=== PATIENT | female | born 2000 | race Two or more races ===

== ENCOUNTER 2024-07-01 14:06 | Emergency (ER) | payer MEDICAID, SELFPAY ==
[2024-07-01 14:06] VITALS: BMI 22.6
[2024-07-01 14:17] VITALS: BP 118/75; PULSE 76; RESP 16; TEMP 36.8; O2SAT 99
--- NOTE | 2024-07-01 14:26 | XR_ITS ---
Examination: CT abdomen and pelvis without contrast. Coronal 3-D reconstructions. Sagittal 2-D reconstructions. Date and time of exam:July 01, 2024 1615 hours Comparison July 30, 2018 INDICATIONS: Lower abdominal pain with bloody stools beginning 3 days ago CTDI: vol (mGy): 6.23 DLP: (mGycm): 336 Technique: Axial images of the abdomen have been obtained, 3 mm slice thickness Intravenous contrast material has not been administered. Low dose protocols were performed. One or more of the following dose reduction techniques were used; automated exposure control, adjustment of the mA and/or KV according to patient size, use of iterative reconstruction technique. Findings: No focal liver or splenic lesion No gallstones No pancreatic mass No renal or ureteral calculi Moderate right renal parenchymal scar formation Aorta normal size No pericecal inflammatory change No bowel obstruction No diverticulitis This is a noncontrast study which limits assessment for gastrointestinal bleeding No pelvic mass Bilateral intact IMPRESSION: Moderate right renal parenchymal scar formation No renal or ureteral calculi, hydronephrosis No CT findings of appendicitis No noncontrast findings of a colitis or enteritis Consider nuclear medicine gastrointestinal bleeding study follow-up as clinically warranted
--- NOTE | 2024-07-01 14:27 | PD.EDRME ---
Rapid Medical Screening Exam RME Arrival date/time: 07/01/24 14:06 23-year-old female presents the emergency department today for complaint of abdominal pain Chief Complaint: GI Bleed Vital signs: Vital Signs Temperature 98.3 F 07/01/24 14:17 Pulse Rate 76 07/01/24 14:17 Respiratory Rate 16 07/01/24 14:17 Blood Pressure 118/75 07/01/24 14:17 Pulse Oximetry (%) 99 07/01/24 14:17 Oxygen Delivery Method Room Air 07/01/24 14:17
[2024-07-01 15:14] LABS: Collection Type, Urine Clean Catch
[2024-07-01 15:24] LABS: HCG Qualitative,Urine Negative
[2024-07-01 15:34] LABS: Bacteria,Urine 3+; Bilirubin,Urine Negative (Negative); Blood,Urine Trace (Negative); Color,Urine Yellow (Lt Yel-Yel); Culture Indicated,Urine Yes; Glucose, Urine Negative (Negative); Ketones,Urine Negative (Negative); Leukocyte Esterase,Urine Positive (Negative); Nitrite,Urine Negative (Negative); Protein,Urine Negative (Neg - Trace); RBC,Urine 4 /hpf (0-3); Specific Gravity,Urine 1.026 (1.001-1.035); Squamous Epithelial Cell,Urine 8 /hpf (0-5); Urobilinogen,Urine Negative mg/dL (0.0-1.0); WBC,Urine 11 /hpf (0-5)
[2024-07-01 15:35] LABS: Clarity,Urine Hazy (Clear/Hazy)
[2024-07-01 15:35] LABS: Basophils % (Auto) 1 % (0-2.5); Eosinophils # (Auto) 0.1 Thou/mm3 (0.0-0.5); Eosinophils % (Auto) 3 % (0-10); Hematocrit 36.2 % (36.0-46.0); Hemoglobin 12.7 g/dL (12.0-16.0); Immature Granulocytes % (Auto) 0 % (0-0); Immature Granulocytes Auto 0.01 Thou/mm3 (0.00-0.00); Lymphocytes # (Auto) 1.5 Thou/mm3 (1.0-4.8); Lymphocytes % (Auto) 26 % (10-50); Mean Corpuscular HGB Conc 35.1 g/dl (31.0-37.0); Mean Corpuscular Hemoglobin 27.2 pg (25.0-35.0); Mean Corpuscular Volume 78 fL (80-100); Monocytes # (Auto) 0.4 Thou/mm3 (0.0-0.8); Monocytes % (Auto) 6 % (0-12); Neutrophils # (Auto) 3.7 Thou/mm3 (1.8-7.7); Neutrophils % (Auto) 65 % (37-80); Nucleated Red Blood Cell % 0 /100 WBC (0); Platelet Count 176 Thou/mm3 (140-440); RDW Standard Deviation 37.9 fL (36.4-46.3); Red Blood Count 4.67 Miln/mm3 (4.00-5.20); White Blood Count 5.7 Thou/mm3 (3.6-11.0)
[2024-07-01 16:02] LABS: Alanine Aminotransferase 10 U/L (10-49); Albumin, Serum 4.6 gm/dL (3.5-5.0); Albumin/Globulin Ratio 1.9 (1.2-2.2); Alkaline Phosphatase 62 U/L (46-116); Anion Gap 8 (7-16); Aspartate Amino Transferase 16 U/L (0-34); BUN/Creatinine Ratio 10 Ratio (12-20); Blood Urea Nitrogen 9 mg/dL (9-23); Calcium 9.1 mg/dL (8.3-10.6); Calcium (Corrected) 9.1 mg/dL (8.5-10.1); Carbon Dioxide 26.2 mMol/L (20.0-31.0); Chloride 109 mMol/L (98-107); Creatinine (Component) 0.9 mg/dL (0.6-1.3); Estimated Creatinine Clearance 81.1 mL/min (>60); Globulin 2.4 gm/dL (2.3-3.5); Glucose 109 mg/dL (74-106); Lipase 34 U/L (12-53); Osmolality,Calculated 284 (275-295); Potassium 3.5 mMol/L (3.4-5.1); Sodium 143 mMol/L (136-145); eGFR > 60 See Note
--- NOTE | 2024-07-01 20:00 | PD.EDGIBLD ---
ED GI Bleed RME/HPI General Chief complaint: GI Bleed Stated complaint: SHARP DIFFUSE ABD PAIN WITH BLOODY STOOLS X3 DAYS Time Seen by Provider: 07/01/24 19:41 Arrival date/time: 07/01/24 14:06 RME / HPI RME / HPI Narrative: 23-year-old female patient with no significant medical history, came in for evaluation regarding lower abdominal pain. Onset of symptoms for the last 3 days as lower abdominal pain, described as dull ache, severity moderate associated with blood-streaked stool. Patient denies any vomiting denies any dizziness denies any other complaints. Patient was seen [facility] and was advised that she was having hemorrhoids. Patient denies any other complaints no medication was given prior to ER visit Related Data Home Medications ?Medication ?Instructions ?Recorded ?Confirmed vits no.130-ferrous fum 27 tab PO DAILY 07/28/20 10/12/23 27 mg iron-folic acid 800 mcg tablet ( Vitamin) Previous Rx's ?Medication ?Instructions ?Recorded ibuprofen 600 mg tablet 600 mg PO Q6H PRN pain #20 tabs 10/14/23 calcium polycarbophil 625 mg 1,250 mg (2 x 625 mg) PO QDAY #20 07/01/24 tablet (FiberCon) tabs cephalexin 500 mg capsule 500 mg PO Q8H 7 days #21 caps 07/01/24 dicyclomine 20 mg tablet 20 mg PO TID PRN abdominal pain 07/01/24 #30 tabs hydrocortisone acetate 25 mg 25 mg DC BID #24 ea 07/01/24 rectal suppository (Anucort-HC) pantoprazole 40 mg tablet,delayed 40 mg PO QDAY #14 tabs 07/01/24 release (Protonix) Allergies Allergy/AdvReac Type Severity Reaction Status Date / Time No Known Allergies Allergy Verified 07/01/24 14:08 Review of Systems Review of Systems Narrative Review of Systems: Review of system reviewed and within normal limits except mentioned in HPI ED Exam Narrative Physical exam: VITAL SIGNS: Reviewed. GENERAL APPEARANCE: Alert and interactive, follows commands, no acute distress, HEAD AND FACE: Non-traumatic. ENT: PERRL, pink conjunctivitis, eyelid no trauma, Mucous membrane moist. NECK: Supple, nontender, no nuchal rigidity. CHEST: No tenderness, no crepitus, no paradoxical movement, no retractions. LUNGS: Clear, well ventilated, symmetric, no rales, no wheezing, no ronchi, no stridor, good breath sounds bilaterally. HEART: Regular rate, regular rhythm, no murmur, no gallops. ABDOMEN: Soft, positive bowel sounds, nondistended, no guarding, nontender, no rebound, no masses, RECTAL: Patient refused rectal exam she told me that she just needed medication for hemorrhoids GENITAL: Deferred. NEUROLOGICAL: Gross motor function intact sensory function intact, Appropriate for age. MUSCULOSKELETAL: low back nontender, full range of motion. EXTREMITIES: Nontender, full range of motion. SKIN: Color pink, dry, no rash, no lacerations, no abrasions, no contusions. LYMPHATICS: Deferred. Course Quality Measures none Orders Category Date Time Status Occult Blood,Stool (Nursing) NOW Care 07/01/24 14:[address] abdomen pelvis wo con Stat Exams 07/01/24 14:26 Completed CBC Stat Lab 07/01/24 15:12 Completed Comprehensive Metabolic Panel Stat Lab 07/01/24 15:12 Completed HCG Qualitative,Urine Stat Lab 07/01/24 15:03 Completed Lipase Stat Lab 07/01/24 15:12 Completed UA, C/S IF [Urinalysis, C/S if Indicated] Stat Lab 07/01/24 15:03 Completed Urine Culture Stat Lab 07/01/24 15:03 Received Ketorolac Inj [Toradol Inj] Med 07/01/24 19:52 Discontinued 30 mg IM X1 ONE cephALEXin [Keflex] Med 07/01/24 19:55 Discontinued 500 mg PO X1 ONE Vital Signs Vital signs: Vital Signs Temperature 98.3 F 07/01/24 14:17 Pulse Rate 76 07/01/24 14:17 Respiratory Rate 16 07/01/24 14:17 Blood Pressure 118/75 07/01/24 14:17 Pulse Oximetry (%) 99 07/01/24 14:17 Oxygen Delivery Method Room Air 07/01/24 14:17 GI Bleed MDM Narrative MDM Narrative:: 23-year-old female patient with no significant medical history, came in for evaluation regarding lower abdominal pain. Onset of symptoms for the last 3 days as lower abdominal pain, described as dull ache, severity moderate associated with blood-streaked stool. Patient denies any vomiting denies any dizziness denies any other complaints. Patient was seen [facility] and was advised that she was having hemorrhoids. Patient denies any other complaints no medication was given prior to ER visit Patient's workup came back with positive for UTI no anemia noted. CT scan of the abdomen pelvis showed Moderate right renal parenchymal scar formation No renal or ureteral calculi, hydronephrosis No CT findings of appendicitis No noncontrast findings of a colitis or enteritis Consider nuclear medicine gastrointestinal bleeding study follow-up as clinically warranted Patient was given Toradol IM and Keflex Patient data External records reviewed:: None Clinical information provided by:: patient Social determinants that could affect healthcare access:: none Patient has the following chronic illnesses:: None How is presenting disease/condition affected by chronic disease/condition?: no chronic disease Evaluation data The following diagnostics were reviewed and interpreted by me:: lab results and radiology exam(s) Lab and/or radiology exams considered but not ordered:: None Interpretation Summary: See results MDM Medications / Prescriptions Medications or Prescriptions considered but not ordered:: None Medication administrations:: Medication Administration History Discontinued Medications Cephalexin HCl (Cephalexin 250 Mg Capsule) 500 mg PO X1 ONE Stop: 07/01/24 19:56 Ketorolac Tromethamine (Ketorolac Inj 60 Mg/2 Ml Vial) 30 mg IM X1 ONE Stop: 07/01/24 19:53 Toradol IM and Keflex Consultations Consultation(s) initiated? (list below): No Diagnosis GI bleed differential diagnosis: hemorrhoids, Lower gastrointestinal hemorrhage and hematochezia Most likely diagnosis given after review of the tests above:: UTI, bright red blood per rectum, abdominal pain, Admission Indicated Admission indicated?: not indicated Admission Request Was there a request for admission?: No Disposition Plan Disposition Plan: Discharge Discharge Attestation Discharge Attestation: The patient was given an opportunity to ask questions and understood the discharge instructions. Discharge instructions specifically effects, indications for sooner follow up or return to the emergency department, and the expected course of current diagnosis. Patient condition: Stable Discharge Plan Plan Patient Disposition: HOME (Self Care) Disposition Comment: stable Prescriptions/Referrals Prescriptions/Med Rec: New hydrocortisone acetate [Anucort-HC] 25 mg suppository 25 mg DC BID Qty: 24 0RF dicyclomine 20 mg tablet 20 mg PO TID PRN (Reason: abdominal pain) Qty: 30 0RF calcium polycarbophil [FiberCon] 625 mg tablet 1,250 mg PO QDAY Qty: 20 0RF pantoprazole [Protonix] 40 mg tablet,delayed release (DR/EC) 40 mg PO QDAY Qty: 14 0RF cephalexin 500 mg capsule 500 mg PO Q8H 7 Days Qty: 21 0RF No Action Vitamin 27 mg iron- 800 mcg tablet 27 tab PO DAILY Patient Comments: TAKE ONE TABLET BY MOUTH EVERY DAY VITAMIN ibuprofen 600 mg tablet 600 mg PO Q6H PRN (Reason: pain) Qty: 20 0RF Referrals: No Primary/Family,Physician [Primary Care Provider] - In 1 week Problem List Clinical Impression: Abdominal pain, UTI (urinary tract infection), Hemorrhoids, Bright red blood per rectum Patient/Caregiver Discharge Instructions Discharge Activity: activity as tolerated Education Materials: Abdominal Pain, Understanding Urinary Tract ... Additional Instructions: Thank you for the opportunity for serving you today. You are stable for discharged . You are advised to: Follow-up with your PCP in 1 to 2 days Return to ED for worsening of symptoms Increase oral fluids Take medication as prescribed Ask her PCP to refer you to a GI specialist for outpatient colonoscopy Print Language: Lebanese Stand Alone Forms: Dorita Award Info., Patient Portal Info Letter PA/FLIGHT ENGINEER PERFORMANCE QUALIFIED Supervising Physician PA/FLIGHT ENGINEER PERFORMANCE QUALIFIED Supervising Physician: MD Keaton
[2024-07-01] MEDS: cephALEXin 250 MG CAPSULE 500 MG PO (20:15)
[2024-07-01] MEDS: KETOROLAC INJ 60 MG/2 ML VIAL 30 MG IM (20:21)
== END 2024-07-01 20:38 | disposition home or self-care (01) ==
PROVIDERS: Nurse Practitioner Primary Care; Emergency Provider Emergency Medicine
DX: N39.0 Urinary tract infection, site not specified (principal); K64.9 Unspecified hemorrhoids; K62.5 Hemorrhage of anus and rectum
CPT/HCPCS: 36415; 74176; 80053; 81001; 81025; 83690; 85025; 87086; 96372; 99284; J1885; A9270

== ENCOUNTER 2025-02-13 18:21 | Emergency (ER) | payer MEDICAID, SELFPAY ==
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
[2025-02-13 18:59] VITALS: BP 143/94; PULSE 102; RESP 20; TEMP 36.9; O2SAT 99
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
[2025-02-13] MEDS: ACETAMINOPHEN w/COD 300-30 TABLET 2 TAB PO (19:26)
[2025-02-13] MEDS: IBUPROFEN TAB 600 MG TABLET PO (19:27)
[2025-02-13 19:37] LABS: Basophils # (Auto) 0.0 Thou/mm3 (0.0-0.2); Basophils % (Auto) 0 % (0-2.5); Eosinophils # (Auto) 0.1 Thou/mm3 (0.0-0.5); Eosinophils % (Auto) 1 % (0-10); Hematocrit 37.0 % (36.0-46.0); Hemoglobin 12.9 g/dL (12.0-16.0); Immature Granulocytes Auto 0.02 Thou/mm3 (0.00-0.00); Lymphocytes # (Auto) 1.0 Thou/mm3 (1.0-4.8); Lymphocytes % (Auto) 13 % (10-50); Mean Corpuscular HGB Conc 34.9 g/dl (31.0-37.0); Mean Corpuscular Hemoglobin 28.6 pg (25.0-35.0); Mean Corpuscular Volume 82 fL (80-100); Monocytes # (Auto) 0.4 Thou/mm3 (0.0-0.8); Monocytes % (Auto) 6 % (0-12); Neutrophils # (Auto) 6.1 Thou/mm3 (1.8-7.7); Neutrophils % (Auto) 79 % (37-80); Nucleated Red Blood Cell # 0.00 Thou/mm3 (0.00-0.00); Nucleated Red Blood Cell % 0 /100 WBC (0); Platelet Count 174 Thou/mm3 (140-440); RDW Standard Deviation 37.5 fL (36.4-46.3); Red Blood Count 4.51 Miln/mm3 (4.00-5.20); White Blood Count 7.6 Thou/mm3 (3.6-11.0)
[2025-02-13 19:50] LABS: INR 1.0 (0.9-1.3); Partial Thromboplastin Time 28.2 Seconds (22.0-36.0); Prothrombin Time 10.9 Seconds (9.0-12.2)
[2025-02-13 19:56] LABS: Alanine Aminotransferase 15 U/L (10-49); Albumin, Serum 5.1 gm/dL (3.5-5.0); Albumin/Globulin Ratio 2.0 (1.2-2.2); Alcohol, Blood Medical < 3.0 mg/dL (0-10.0); Alkaline Phosphatase 64 U/L (46-116); Anion Gap 11 (7-16); Aspartate Amino Transferase 19 U/L (0-34); BUN/Creatinine Ratio 9 Ratio (12-20); Bilirubin,Direct 0.2 mg/dL (0.0-0.3); Bilirubin,Total 0.5 mg/dL (0.3-1.2); Blood Urea Nitrogen 7 mg/dL (9-23); Calcium 9.6 mg/dL (8.3-10.6); Calcium (Corrected) 9.6 mg/dL (8.5-10.1); Carbon Dioxide 23.8 mMol/L (20.0-31.0); Chloride 109 mMol/L (98-107); Creatinine (Component) 0.8 mg/dL (0.6-1.3); Globulin 2.5 gm/dL (2.3-3.5); Glucose 105 mg/dL (74-106); Magnesium 1.9 mg/dL (1.6-2.6); Osmolality,Calculated 284 (275-295); Potassium 3.6 mMol/L (3.4-5.1); Sodium 144 mMol/L (136-145); Total Protein 7.6 gm/dL (5.7-8.2); eGFR > 60 See Note
[2025-02-13 20:22] LABS: HCG,Qualitative Serum Negative
== END 2025-02-13 22:05 | disposition home or self-care (01) ==
PROVIDERS: Emergency Provider Emergency Medicine; PCP Nurse Practitioner Family
DX: R07.9 Chest pain, unspecified (principal); R51.9 Headache, unspecified; M54.6 Pain in thoracic spine; M54.2 Cervicalgia; M25.561 Pain in right knee; V43.62XA Car passenger injured in collision with other type car in traffic accident, initial encounter
CPT/HCPCS: 36415; 70450; 70486; 71045; 71250; 72125; 72128; 73562; 74176; 80053; 80320; 82248; 83735; 84703; 85025; 85610; 85730; 99283; A9270; G0480